=== PATIENT | female | born 1940 | race Caucasian/White ===

== ENCOUNTER → 2016-07-30 | Outpatient (CLI) | payer MEDICARE, BC ==
[~2016-07-30] MED LIST: ATOR40TA16 PO; ENAL10TA PO; HYDR-3583 PO; NAPR500T PO; NEXI20CA PO; ZOLP5TAB3 PO
[2016-07-30 14:09] LABS: BLOOD, URINE NEG (NEG); COMMENT (UR) CULT NOT INDICATED; CULTURE IF INDICATED CULT NOT INDICATED; GLUCOSE,URINE NEG (NEG); KETONE, URINE NEG (NEG); MUCUS URINE FEW /lpf (OCC); NITRITE,URINE NEG (NEG); PH, URINE 5.5 (5.0-8.5); URINE COLOR LIGHT-YELLOW (YELLW/STRAW)
[2016-07-30 14:09] LABS: AUTOMATED NEUTROPHIL # 5.3 TH/MM3 (1.8-7.7); BASOPHIL % 0.4 % (0.0-2.0); EOSINOPHIL # 0.3 TH/MM3 (0-0.4); EOSINOPHIL % 3.2 % (0.0-4.0); HEMATOCRIT 36.9 % (35.0-46.0); HEMO FLAGS DIFF FINAL; LYMPH % 27.5 % (9.0-44.0); LYMPHOCYTE # 2.3 TH/MM3 (1.0-4.8); MEAN CELL VOLUME 83.6 FL (80.0-100.0); MEAN CORPUSCULAR HEMOGLOBIN 27.6 PG (27.0-34.0); MONO % 4.5 % (0.0-8.0); NEUT % 64.4 % (16.0-70.0); PLATELET COUNT 221 TH/MM3 (150-450); RED BLOOD COUNT 4.41 MIL/MM3 (4.00-5.30); RED CELL DISTRIBUTION WIDTH 15.2 % (11.6-17.2); WHITE BLOOD COUNT 8.2 TH/MM3 (4.0-11.0)
== END ==
LOC: CPRE 12:51
PROVIDERS: ATTEND Pain Medicine Interventional Pain Medicine
DX: Z01.812 Encounter for preprocedural laboratory examination (principal); M54.5 Low back pain
CPT/HCPCS: 36415; 81001; 84132; 85025

== ENCOUNTER → 2016-08-06 | Day surgery (SDC) | payer MEDICARE, BC ==
[~2016-08-06] VITALS: Ht 157.5 cm; Wt 60.0 kg
[~2016-08-06] MED LIST changes: +LACTATED RINGER'S 1000 ML INJ 1,000 ML ONE; +SODIUM CHLOR 0.9% 250 ML INJ 250 ML ONE; +VANCOMYCIN 500 MG VIAL ONE; +ceFAZolin INJ 1,000 MG VIAL ONE
[2016-08-06 09:08] VITALS: BP 137/61; PULSE 63; RESP 18; TEMP 97.7; O2SAT 97
== END | disposition home or self-care (01) ==
LOC: PHSDC 08:13
PROVIDERS: ATTEND Pain Medicine Interventional Pain Medicine
DX: Z45.49 Encounter for adjustment and management of other implanted nervous system device (principal); Z53.9 Procedure and treatment not carried out, unspecified reason
CPT/HCPCS: G0463; J0690; J3370; J7050; J7120; 99211

== ENCOUNTER → 2016-08-13 | Day surgery (SDC) | payer MEDICARE, BC ==
[~2016-08-13] VITALS: Ht 157.5 cm; Wt 60.5 kg
[~2016-08-13] MED LIST changes: +ACETAMINOPHEN/HYDROcodone 325 MG/10 MG TAB ONE; +BUPIVACAINE/EPINEPHRINE 0.5% PF 30 ML VIAL ONE; +MORPHINE SULFATE PF 200 MG/20 ML AMP IT ONE; +ONDANSETRON HCL 4 MG/2 ML VIAL IV PUSH ONE; +PROPOFOL 200 MG/20 ML AMP IV ONE; -SODIUM CHLOR 0.9% 250 ML INJ 250 ML ONE; +SODIUM CHLORIDE 0.9% 20 ML VIAL ONE; +SODIUM CHLORIDE 0.9% INJ 100 ML ONE; +SODIUM CHLORIDE 0.9% INJ 50 ML ONE; +ePHEDrine/NS 25 MG/5 ML SYR IV ONE
[2016-08-13 10:03] VITALS: BP 162/79; PULSE 54; RESP 16; TEMP 97.4; O2SAT 94
[2016-08-13 14:25] VITALS: BP 132/74; PULSE 66; RESP 16; TEMP 98.2; O2SAT 98
--- NOTE | 2016-08-17 09:53 | MP ---
cc: OSCAR PEREYRA M.D. DATE OF SURGERY 08/13/2016 DATE OF 1940 PROCEDURE 1. Removal of [employer] implanted pump. 2. Replacement with new [employer] implanted pump. 3. Revision of original position for implanted pump. PREPROCEDURE DIAGNOSIS Intractable pain. POSTPROCEDURE DIAGNOSIS Intractable pain. REASON FOR SURGERY End of battery life implanted pump. PROCEDURE NOTE IV was started in the holding area. The patient was given IV antibiotics, taken to the operating room, placed in the supine position. All pressure points were checked and padded. She was given general anesthesia. Her abdomen was prepped with Chloraprep and draped with sterile drapes. Then the skin over the existing implanted pump was infiltrated with 0.5% Marcaine containing epinephrine and then more medially toward the umbilicus the skin was also infiltrated. Then an incision was made over the existing implanted pump. Sharp and blunt dissection were used to remove the pump from its subcutaneous pocket. Then an incision was made more medially in the abdomen and a new subcutaneous pocket was created. Then the intrathecal catheter was disconnected from the old implanted pump and a tunneling device was used to tunnel that from the lateral original position to the more medial new position of the implanted pump. There was clear flow of cerebrospinal fluid throughout the catheter system and 2.5 mL of cerebrospinal fluid was actually aspirated through the catheter and discarded. Then a new [employer] SynchroMed pump was filled with medication on a side table and attached to the original catheter system. Then the new pump was placed in the new subcutaneous pocket and anchored to the underlying fascia using two 2-0 Ethibond sutures. Then both incisions were closed using 3-0 Monocryl in the subcuticular tissue and 3-0 nylon on the skin. The incisions were covered with sterile adhesive dressings and the patient was taken to the recovery room with stable vital signs, neurologically intact. W. MD JARROD Barrera/KI /1:18 PM /9:47 AM
== END | disposition home or self-care (01) ==
LOC: PHSDC 08:53
PROVIDERS: ATTEND Pain Medicine Interventional Pain Medicine
DX: Z45.49 Encounter for adjustment and management of other implanted nervous system device (principal); M54.5 Low back pain; I10 Essential (primary) hypertension
CPT/HCPCS: 00300; 62362; C1772; J0690; J2274; J2405; J3370; J7120